=== PATIENT | female | born 1960 | race Caucasian/White ===

== ENCOUNTER 2016-08-09 22:00 | Emergency (ER) | payer BC ==
[~2016-08-09] VITALS: Ht 154.9 cm; Wt 101.5 kg
[~2016-08-09 22:00] MED LIST: ALLERGY RELIEF10 M1 PO; ASPIR-LOW81 MG PO; BIOTIN1000 MICRO PO; BISOPROLOL FUMAR5 MG PO; BUPROPION XL300 MG PO; CEFTIN250 MG PO; CRANBERRY 4001 EAC1 PO; ECHINACEA380 MG PO; FISH OIL 1,0001 EAC7 PO; GLUCOSAMINE CH1 EAC2 PO; LASIX40 MG PO; LISINOPRIL20 MG PO; MOTRIN800 MG PO; MULTIPLE VITAM1 EACH PO; NAPROXEN250 MG PO; NAPROXEN500 MG PO; POTASSIUM-9999 MG PO
[2016-08-09] MEDS ORDERED: VOLTAREN75 MG PO (23:40)
[2016-08-10 00:11] VITALS: BP 134/65
== END 2016-08-10 00:12 | disposition home or self-care (01) ==
LOC: EXP 22:00 → EME 22:00 → EXP 08-10 00:12
DX: M75.21 Bicipital tendinitis, right shoulder (principal); I10 Essential (primary) hypertension; K21.9 Gastro-esophageal reflux disease without esophagitis; F32.9 Major depressive disorder, single episode, unspecified; Z88.8 Allergy status to other drugs, medicaments and biological substances
CPT/HCPCS: 73060; 99281; 99283